=== PATIENT | male | born 1965 | race Two or more races ===

== ENCOUNTER 2022-10-20 12:06 | Outpatient (CLI) | payer OTHER | END 2022-10-20 12:14 | disposition home or self-care (01) | LOC: RAD 12:06 | DX: M99.01 Segmental and somatic dysfunction of cervical region (principal); M99.02 Segmental and somatic dysfunction of thoracic region; M99.03 Segmental and somatic dysfunction of lumbar region; M99.05 Segmental and somatic dysfunction of pelvic region ==

== ENCOUNTER → 2023-07-06 09:27 | Outpatient (CLI) | payer OTHER ==
[2023-07-06 10:46] LABS: PH,URINE 6.5 (5.0-8.0); URINE APPEARANCE Clear; URINE BILIRRUBIN Negative (NEGATIVE); URINE BLOOD Negative; URINE COLOR Yellow; URINE GLUCOSE Negative (NEGATIVE); URINE LEUKOCYTE Negative; URINE NITRATE Negative; URINE PROTEIN Negative (NEGATIVE); URINE UROBILINOGEN 0.2 E.U./dl
[2023-07-06 10:48] LABS: HEMATOCRIT 45.9 % (39.0-48.0); HEMOGLOBIN 15.3 g/dL (13-16.00); MEAN CELL VOLUME 100.3 fL (80.0-100.00); MEAN CORPUSCULAR HEMOGLOBIN 33.5 pg (27.00-32.0); MEAN CORPUSCULAR HGB CONC 33.4 g/dl (32.0-36.0); PLATELET COUNT 193 K/uL (150-450); RED BLOOD COUNT 4.58 M/uL (4.00-6.00); RED CELL DISTRIBUTION WIDTH 14.3 % (11.5-14.5)
[2023-07-06 10:51] LABS: URINE BACTERIA 6.2 uL (0.0-1933); URINE RBC 6.1 uL (0.0-20.8); URINE WBC 2.1 uL (0.0-23.2)
[2023-07-06 11:07] LABS: URINE EPITHELIAL CELLS 0.7 uL (0.0-38.8)
[2023-07-06 11:14] LABS: PARTIAL THROMBOPLASTIN TIME 27.2 SECONDS (22.0-34.0); PROTHROMBIN TIME 10.5 SECONDS (9.0-11.5)
== END | disposition home or self-care (01) ==
LOC: RAD 09:27 → LAB 09:27
DX: Z01.812 Encounter for preprocedural laboratory examination (principal); Z01.811 Encounter for preprocedural respiratory examination; D68.9 Coagulation defect, unspecified; B34.9 Viral infection, unspecified; H25.11 Age-related nuclear cataract, right eye

== ENCOUNTER 2024-01-11 19:39 | Emergency (ER) | payer OTHER ==
[~2024-01-11] VITALS: Ht 180.3 cm; Wt 104.3 kg
[2024-01-11] MEDS ORDERED: FAMOTIDINE/PF 20 MG/2 ML VIAL IV PUSH STA (20:37)
[2024-01-11] MEDS ORDERED: ENALAPRILAT DIHYDRATE 1.25 MG/ML VIAL IV STA (20:39)
[2024-01-11 21:25] LABS: HEMATOCRIT 42.3 % (39.0-48.0); MEAN CELL VOLUME 98.4 fL (80.0-100.00); MEAN CORPUSCULAR HEMOGLOBIN 34.8 pg (27.00-32.0); MEAN CORPUSCULAR HGB CONC 35.4 g/dl (32.0-36.0); PLATELET COUNT 217 K/uL (150-450); RED CELL DISTRIBUTION WIDTH 13.5 % (11.5-14.5)
[2024-01-11 21:43] LABS: CALCIUM 9.1 mg/dL (8.5-10.1); CREATININE SERUM 0.78 mg/dL (0.70-1.30); GFR 102.23; POTASSIUM 3.77 mEq/L (3.5-5.1)
== END 2024-01-11 22:32 | disposition home or self-care (01) ==
LOC: ER 19:39
PROVIDERS: General Practice
DX: K29.70 Gastritis, unspecified, without bleeding (principal); I10 Essential (primary) hypertension
CPT/HCPCS: 36415; 96365; 99282; J3490 ×2